=== PATIENT | male | born 1970 ===

== ENCOUNTER 2017-05-22 20:48 | Emergency (ER) | payer SELFPAY ==
[~2017-05-22] VITALS: Ht 172.7 cm; Wt 68.0 kg
[~2017-05-22 20:48] MED LIST: AMOX500 PO; CEPH500 PO; CHLO10 PO; CHLO25 PO; CLOT1TC TOP; HEART MEDICATION; HYDACE5 PO; IBUP600 PO; IBUP800 PO; NAPR500 PO; OXYACE5T PO; PROCODE120 PO; PROM25 PO; Pyridium200 MG PO; RXAMOX500 PO; RXTRAM50 PO; SULTRIDS PO; TRAM50 PO; Vibramycin100 MG PO
[2017-05-22] MEDS ORDERED: CEPH500 PO (21:48)
[2017-10-05] MEDS ORDERED: Bactrim Ds Tab1 EACH PO (17:31)
[2017-10-05] MEDS ORDERED: Keflex500 MG PO (17:31)
== END 2017-05-22 21:53 | disposition home or self-care (01) ==
LOC: ER 20:48
DX: L03.311 Cellulitis of abdominal wall (principal); F17.210 Nicotine dependence, cigarettes, uncomplicated
CPT/HCPCS: 99283

== ENCOUNTER 2020-05-22 16:20 | Emergency (ER) | payer OTHER ==
[~2020-05-22] VITALS: Ht 172.7 cm; Wt 65.8 kg
[~2020-05-22 16:20] MED LIST changes: +Bactrim Ds Tab1 EACH PO; +Keflex500 MG PO
== END 2020-05-22 16:35 | disposition home or self-care (01) ==
LOC: ER 16:20
DX: Z02.89 Encounter for other administrative examinations (principal); F17.210 Nicotine dependence, cigarettes, uncomplicated
CPT/HCPCS: 99283